=== PATIENT | female | born 1955 | race Caucasian/White ===

== ENCOUNTER 2019-01-20 10:39 | Emergency (ER) | payer BC, SELFPAY ==
[2019-01-20 10:42] VITALS: BP 146/90; PULSE 65; RESP 20; TEMP 36.8; O2SAT 100
--- NOTE | 2019-01-20 11:10 | W.ED.GENAD ---
Discharge Plan Disposition Patient Disposition: HOME Condition: Improving Discharge Details Chief Complaint: Orthopedic Clinical Impression: Finger sprain Primary Care Provider: Jean Rogers ED Provider: Davey Sanchez Home Meds and New Rx's Prescriptions: Continued levothyroxine [Synthroid] 25 mcg Tablet PO DAILY RF: 0 Discharge Instructions Additional Instructions: Elevate and ice to reduce pain and swelling today. You likely have spreading of the bruising. A jeweler will be able to reshape and repair your ring. Return for any acute concerns Discharge Data Discharge Date/Time-TO BE ENTERED AT DEPARTURE: 01/20/19 11:23 Medical Decision Making 63-year-old female sprained her left finger when falling downstairs yesterday. It is her wedding ring finger, which was left in place overnight. Significant distal swelling and pain this morning. She arrives, the ring requires and is removed with a ring cutter. She has intact full range of motion, with normal sensation. She declines x-ray. She is stable for discharge to home HPI General Mode of arrival: ambulatory. Date/Time Provider Initiated Documentation: 01/20/19 10:40. Limitations to Documentation: no limitations. Information obtained by: patient. History of Present Illness 63 year old F presents to the emergency department with the chief complaint of Left ring finger swelling and pain, ring in place, described as mild, Quality is described as dull and constant, and is localized to the left and upper extremity. Patient reports no radiation. Patient started experiencing this hour(s) and it has been constant. No relieving factors improve symptom(s), No exacerbating factors reported . Patient notes no other symptoms.. Related Data Home Medications Medication Instructions Recorded Confirmed levothyroxine [Synthroid] mcg PO DAILY 01/20/19 Allergies Allergy/AdvReac Type Severity Reaction Status Date / Time No Known Allergies Allergy Unverified 01/20/19 10:46 General Stated Complaint: Orthopedic SAKSHI: 3 Review of Systems Review of Systems No numbness or tingling. Denies significant pain at rest. 6 systems reviewed and otherwise negative [facility] Medical History History of cold urticaria (Acute) Hypothyroid (Chronic) Social History Smoking/Tobacco Use Status: Never Alcohol Intake: never Substance use type: does not use Do you feel safe at home: Yes Do you feel safe in your relationship?: Yes Exam Narrative Exam Narrative: GEN: awake, alert, oriented 3. Pleasant, well groomed, interactive. HEAD: Normocephalic, atraumatic EXT: Full ROM, the left ring finger is swollen distally with ring present proximally. Full range of motion intact. No bony tenderness. Capillary refill is approximately 2 set Neuro: Grossly normal neurologic exam, conversant, interactive. Psych: Speech fluent, thoughts congruent, affect normal Course Vital Signs Temperature 36.8 C 01/20/19 10:42 Pulse 65 01/20/19 10:42 Respiratory Rate 20 01/20/19 10:42 Blood Pressure 146/90 H 01/20/19 10:42 Pulse Oximetry 100 01/20/19 10:42 Temperature 36.8 C 01/20/19 10:42 Temperature Source Temporal Artery Scan 01/20/19 10:42 Pulse 65 01/20/19 10:42 Respiratory Rate 20 01/20/19 10:42 Respiratory Effort Non-Labored 01/20/19 10:42 Blood Pressure 146/90 H 01/20/19 10:42 Pulse Oximetry 100 01/20/19 10:42 Oxygen Delivery Method Room Air 01/20/19 10:42 Oxygen Flow Rate 0 01/20/19 10:42 Pain Level 1 01/20/19 10:42 Comment 01/20/19 10:42
--- NOTE | 2019-01-20 11:14 | ED.GENADUL_ITS ---
Discharge Plan Disposition Patient Disposition: HOME Condition: Improving Discharge Details Chief Complaint: Orthopedic Clinical Impression: Finger sprain Primary Care Provider: Jean Rogers ED Provider: Davey Sanchez Home Meds and New Rx's Prescriptions: Continued levothyroxine [Synthroid] 25 mcg Tablet PO DAILY RF: 0 Discharge Instructions Additional Instructions: Elevate and ice to reduce pain and swelling today. You likely have spreading of the bruising. A jeweler will be able to reshape and repair your ring. Return for any acute concerns Discharge Data Discharge Date/Time-TO BE ENTERED AT DEPARTURE: 01/20/19 11:23 Medical Decision Making 63-year-old female sprained her left finger when falling downstairs yesterday. It is her wedding ring finger, which was left in place overnight. Significant distal swelling and pain this morning. She arrives, the ring requires and is removed with a ring cutter. She has intact full range of motion, with normal sensation. She declines x-ray. She is stable for discharge to home HPI General Mode of arrival: ambulatory . Date/Time Provider Initiated Documentation: 01/20/19 10:40 . Limitations to Documentation: no limitations . Information obtained by: patient . History of Present Illness 63 year old F presents to the emergency department with the chief complaint of Left ring finger swelling and pain, ring in place, described as mild, Quality is described as dull and constant, and is localized to the left and upper ex tremity. Patient reports no radiation. Patient started experiencing this hour(s) and it has been constant. No relieving factors improve symptom(s), No exacerbating factors reported . Patient notes no other symptoms.. Related Data Home Medications Medication Instructions Recorded Confirmed levothyroxine [Synthroid] mcg PO DAILY 01/20/19 Allergies Allergy/AdvReac Type Severity Reaction Status Date / Time No Known Allergies Allergy Unverified 01/20/19 10:46 General Stated Complaint: Orthopedic SAKSHI: 3 Review of Systems Review of Systems No numbness or tingling. Denies significant pain at rest. 6 systems reviewed and otherwise negative [facility] Medical History History of cold urticaria (Acute) Hypothyroid (Chronic) Social History Smoking/Tobacco Use Status: Never Alcohol Intake: never Substance use type: does not use Do you feel safe at home: Yes Do you feel safe in your relationship?: Yes Exam Narrative Exam Narrative: GEN: awake, alert, oriented 3. Pleasant, well groomed, interactive. HEAD: Normocephalic, atraumatic EXT: Full ROM, the left ring finger is swollen distally with ring present proximally. Full range of motion intact. No bony tenderness. Capillary refill is approximately 2 set Neuro: Grossly normal neurologic exam, conversant, interactive. Psych: Speech fluent, thoughts congruent, affect normal Course Vital Signs Temperature 36.8 C 01/20/19 10:42 Pulse 65 01/20/19 10:42 Respiratory Rate 20 01/20/19 10:42 Blood Pressure 146/90 H 01/20/19 10:42 Pulse Oximetry 100 01/20/19 10:42 Temperature 36.8 C 01/20/19 10:42 Temperature Source Temporal Artery Scan 01/20/19 10:42 Pulse 65 01/20/19 10:42 Respiratory Rate 20 01/20/19 10:42 Respiratory Effort Non-Labored 01/20/19 10:42 Blood Pressure 146/90 H 01/20/19 10:42 Pulse Oximetry 100 01/20/19 10:42 Oxygen Delivery Method Room Air 01/20/19 10:42 Oxygen Flow Rate 0 01/20/19 10:42 Pain Level 1 01/20/19 10:42 Comment 01/20/19 10:42
[2019-01-20 11:50] VITALS: BP 146/90; PULSE 65; RESP 20; TEMP 36.8; O2SAT 100
== END 2019-01-20 11:23 | disposition home or self-care (01) ==
PROVIDERS: Emergency Provider Emergency Medicine; PCP Internal Medicine
DX: S63.615A Unspecified sprain of left ring finger, initial encounter (principal); W49.04XA Ring or other jewelry causing external constriction, initial encounter; W10.8XXA Fall (on) (from) other stairs and steps, initial encounter
CPT/HCPCS: 99282

== ENCOUNTER 2019-03-03 13:55 | Outpatient (REF) | payer BC, SELFPAY | END 2019-03-03 14:15 | LOC: NCHCN 13:55 | PROVIDERS: PCP Internal Medicine; Visit Provider Internal Medicine | DX: Z00.00 Encounter for general adult medical examination without abnormal findings (principal); E03.9 Hypothyroidism, unspecified | CPT/HCPCS: 84443 ==

== ENCOUNTER 2019-10-26 12:10 | Outpatient (REF) | payer BC, SELFPAY ==
[2019-10-26 21:17] LABS: Abs Immature Grans 0.01 k/cumm (0.0-0.09); Absolute Basophil Count 0.03 k/cumm (0.0-0.2); Absolute Eosinophil Count 0.13 k/cumm (0.0-0.7); Absolute Lymphocyte Count 2.13 k/cumm (1.2-3.4); Absolute Monocyte Count 0.38 k/cumm (0.11-0.7); Absolute Neutrophil Count 2.67 k/cumm (1.2-6.7); Basophils % 0.6; Eosinophils % 2.4; HCT 40.5 % (36.0-46.0); HGB 13.5 g/dL (12.0-15.5); Immature Grans % 0.2 %; Lymphocytes % 39.8; Mean Corp. HGB Concentration 33.3 g/dL (32.0-36.0); Mean Corpuscular Hemoglobin 28.5 pg (27.0-33.0); Mean Corpuscular Volume 85.6 fL (80-95); Mean Platelet Volume 10.6 fL (8.0-11.0); Monocytes % 7.1; Neutrophils % 49.9; Platelet Count 267 x1000/uL (130-400); RBC 4.73 m/cumm (4.00-5.20); RBC Distribution Width 13.4 % (11.7-14.6); White Blood Cell Count 5.35 k/cumm (4.4-10.8)
[2019-10-26 21:38] LABS: ALT 29 U/L (14-59); AST 22 U/L (15-37); Albumin 4.1 g/dL (3.4-5.0); Alkaline Phosphatase 100 U/L (46-116); Anion Gap 11.7 mmol/L (3-11); BUN 16 mg/dL (7-18); Bilirubin, Total 0.5 mg/dL (0.2-1.0); CO2 25.3 mmol/L (21.0-32.0); CREATININE 0.86 mg/dL (0.55-1.02); Calcium 9.3 mg/dL (8.5-10.1); Chloride 104 mmol/L (98-107); Glucose 86 mg/dL (74-106); Potassium 4.2 mmol/L (3.5-5.1); Sodium 141 mmol/L (136-145); Total Protein 7.5 g/dL (6.4-8.2)
[2019-10-26 22:12] LABS: FREE T4 1.38 ng/dL (0.76-1.46); TSH 1.37 uIU/mL (0.36-3.74)
[2019-10-27 16:06] LABS: Rheumatoid Factor 9.5 IU/mL (<12.0)
[2019-10-30 12:06] LABS: Lyme Ab w Rflx to Lyme Confirm Negative (Negative)
[2019-10-30 15:53] LABS: c-ANCA Negative (Negative); p-ANCA Negative (Negative)
[2019-10-30 22:05] LABS: Anaplasma phagocytophilum Negative (Negative); B. miyamotoi PCR Negative (Negative); Babesia divergens/MO-1 Negative (Negative); Babesia duncani Negative (Negative); Babesia microti Negative (Negative); Ehrlichia chaffeensis Negative (Negative); Ehrlichia ewingii/canis Negative (Negative); Ehrlichia muris eauclairensis Negative (Negative)
[2019-10-31 14:25] LABS: ANA Interpretation Positive (Negative)
== END 2019-10-26 12:30 ==
LOC: NCHCN 12:10
PROVIDERS: PCP Internal Medicine; Visit Provider Internal Medicine
DX: M25.559 Pain in unspecified hip (principal); M25.569 Pain in unspecified knee; M19.049 Primary osteoarthritis, unspecified hand; L50.2 Urticaria due to cold and heat; E03.9 Hypothyroidism, unspecified
CPT/HCPCS: 80053; 87798; 84439; 84443; 85025; 86038; 86255; 86431; 86618

== ENCOUNTER 2020-01-29 09:43 | Outpatient (REF) | payer BC, SELFPAY ==
[2020-02-01 12:16] LABS: dsDNA Ab, IgG <12.3 IU/mL (<30.0)
== END 2020-01-29 10:03 ==
LOC: NCHCN 09:43
PROVIDERS: PCP Internal Medicine; Visit Provider Internal Medicine
DX: R79.89 Other specified abnormal findings of blood chemistry (principal)
CPT/HCPCS: 86225

== ENCOUNTER 2020-02-20 15:22 | Outpatient (REF) | payer BC, SELFPAY ==
[2020-02-21 02:32] LABS: COVID-19 RT-PCR UVMMC Result Negative (Negative)
== END 2020-02-20 15:42 ==
LOC: NCHCN 15:22
PROVIDERS: PCP Internal Medicine; Visit Provider Nurse Practitioner Family
DX: R50.9 Fever, unspecified (principal)
CPT/HCPCS: U0003

== ENCOUNTER 2020-03-13 13:14 | Outpatient (REF) | payer BC, SELFPAY ==
[2020-03-15 10:36] LABS: Lyme Ab w Rflx to Lyme Confirm Positive (Negative)
[2020-03-18 15:50] LABS: IgG Band(s) p41; IgG Immunoblot Negative (Negative); IgM Band(s) p23; IgM Immunoblot Positive (Negative)
[2020-03-18 23:14] LABS: Anaplasma phagocytophilum Negative (Negative); B. miyamotoi PCR Negative (Negative); Babesia divergens/MO-1 Negative (Negative); Babesia duncani Negative (Negative); Babesia microti Negative (Negative); Ehrlichia chaffeensis Negative (Negative); Ehrlichia ewingii/canis Negative (Negative); Ehrlichia muris eauclairensis Negative (Negative)
[2020-03-29 11:17] LABS: Misc Referral (MAYO) See Comments
== END 2020-03-13 13:34 ==
LOC: NCHCN 13:14
PROVIDERS: PCP Internal Medicine; Visit Provider Internal Medicine
DX: R50.9 Fever, unspecified (principal); R79.89 Other specified abnormal findings of blood chemistry
CPT/HCPCS: 86617; 87798; 86618

== ENCOUNTER 2020-04-16 21:51 | Outpatient (REF) | payer BC, SELFPAY ==
[2020-04-18 10:17] LABS: Lyme Ab w Rflx to Lyme Confirm Positive (Negative)
[2020-04-19 15:30] LABS: IgG Band(s) p41; IgG Immunoblot Negative (Negative); IgM Band(s) p41; IgM Immunoblot Positive (Negative)
== END 2020-04-16 22:11 ==
LOC: NCHCN 21:51
PROVIDERS: PCP Internal Medicine; Visit Provider Internal Medicine
DX: R79.89 Other specified abnormal findings of blood chemistry (principal); M25.559 Pain in unspecified hip; M25.569 Pain in unspecified knee
CPT/HCPCS: 86617; 86618

== ENCOUNTER 2020-06-26 14:39 | Outpatient (REF) | payer BC, SELFPAY ==
[2020-07-01 23:42] LABS: SARS-CoV-2 RNA Undetected (Undetected); SARS-CoV-2 Specimen Source Nasal
== END 2020-06-26 14:59 ==
LOC: NCHCN 14:39
PROVIDERS: PCP Internal Medicine; Visit Provider Internal Medicine
DX: Z20.828 Contact with and (suspected) exposure to other viral communicable diseases (principal)
CPT/HCPCS: U0003

== ENCOUNTER 2020-09-19 20:54 | Outpatient (REF) | payer BC, SELFPAY ==
[2020-09-19 21:37] LABS: FREE T4 1.38 ng/dL (0.76-1.46); TSH 1.21 uIU/mL (0.36-3.74)
== END 2020-09-19 21:14 ==
LOC: NCHCN 20:54
PROVIDERS: PCP Internal Medicine; Visit Provider Internal Medicine
DX: E03.9 Hypothyroidism, unspecified (principal)
CPT/HCPCS: 84439; 84443

== ENCOUNTER 2021-02-12 11:42 | Outpatient (REF) | payer MEDICARE, SELFPAY ==
[2021-02-12 16:20] LABS: Absolute Basophil Count 0.01 10^3/uL (0.0-0.2); Absolute Lymphocyte Count 0.72 10^3/uL (1.2-3.4); Absolute Monocyte Count 0.17 10^3/uL (0.1-0.8); Absolute Neutrophil Count 1.51 10^3/uL (1.2-6.7); Basophils % 0.4; HGB 13.8 g/dL (11.2-15.7); Lymphocytes % 29.9; MCH 28.2 pg (27.0-33.0); MCHC 33.7 % (32.0-36.0); MCV 83.8 fL (80-95); MPV 10.7 fL (8.0-11.0); Monocytes % 7.1; Neutrophils % 62.6; Nucleated RBC 0 %; RBC 4.89 10^6/uL (3.93-5.22); RDW 13.1 % (11.7-14.6); WBC 2.41 10^3/uL (4.4-10.8)
[2021-02-12 16:28] LABS: ALT 179 U/L (14-59); AST 192 U/L (15-37); Albumin 3.3 g/dL (3.4-5.0); Alkaline Phosphatase 184 U/L (46-116); Anion Gap 11.6 mmol/L (3-11); BUN 11 mg/dL (7-18); Bilirubin, Total 0.6 mg/dL (0.2-1.0); CO2 21.4 mmol/L (21.0-32.0); CREATININE 0.9 mg/dL (0.55-1.02); Calcium 8.4 mg/dL (8.5-10.1); Chloride 106 mmol/L (98-107); Glucose 95 mg/dL (74-106); Potassium 3.9 mmol/L (3.5-5.1); Sodium 139 mmol/L (136-145); Total Protein 6.7 g/dL (6.4-8.2)
[2021-02-12 17:04] LABS: Diff Comment PLT Morph Reviewed; Platelet Count 99 10^3/uL (130-400); RBC Morphology Normal
[2021-02-13 10:59] LABS: Lyme Ab w Rflx to Lyme Confirm Negative (Negative)
[2021-02-13 13:05] LABS: dsDNA Ab, IgG <12.3 IU/mL (<30.0)
[2021-02-14 16:29] LABS: COVID-19 RT-PCR UVMMC Result Negative (Negative)
== END 2021-02-12 11:43 | disposition home or self-care (01) ==
LOC: NCHCN 11:42
PROVIDERS: PCP Internal Medicine; Visit Provider Internal Medicine
DX: M25.551 Pain in right hip (principal); M25.552 Pain in left hip; M25.561 Pain in right knee; M25.562 Pain in left knee; R79.89 Other specified abnormal findings of blood chemistry; Z20.822 Contact with and (suspected) exposure to COVID-19
CPT/HCPCS: 80053; U0003; 85025; 86225; 86618

== ENCOUNTER 2021-02-27 14:42 | Outpatient (REF) | payer MEDICARE, OTHER, SELFPAY ==
[2021-02-28 09:59] LABS: HGB 13.1 g/dL (11.2-15.7); MCH 28.2 pg (27.0-33.0); MCHC 32.8 % (32.0-36.0); MCV 86.2 fL (80-95); MPV 10.7 fL (8.0-11.0); Nucleated RBC 0 %; Platelet Count 245 10^3/uL (130-400); RBC 4.64 10^6/uL (3.93-5.22); RDW 13.4 % (11.7-14.6); RDW-SD 41.9 fL; WBC 4.75 10^3/uL (4.4-10.8)
[2021-02-28 10:18] LABS: Absolute Basophil Count 0.05 10^3/uL (0.0-0.2); Absolute Eosinophil Count 0.19 10^3/uL (0.0-0.7); Absolute Lymphocyte Count 2.14 10^3/uL (1.2-3.4); Absolute Monocyte Count 0.57 10^3/uL (0.1-0.8); Absolute Neutrophil Count 1.81 10^3/uL (1.2-6.7); Atypical Lymphocytes % 5; Bands % 3; Diff Comment Manual Differential; RBC Morphology Normal
[2021-02-28 10:22] LABS: ALT 38 U/L (14-59); AST 30 U/L (15-37); Albumin 3.8 g/dL (3.4-5.0); Alkaline Phosphatase 122 U/L (46-116); Bilirubin, Direct 0.1 mg/dL (0.0-0.2); Bilirubin, Total 0.4 mg/dL (0.2-1.0); Total Protein 7.4 g/dL (6.4-8.2)
[2021-02-28 11:00] LABS: Vitamin B12 392 pg/mL (193-986)
[2021-03-04 08:55] LABS: Hepatitis C Ab w Rflx HCV PCR Negative (Negative)
[2021-03-04 08:56] LABS: Hep A Total Ab w Rflx IgM Negative (Negative)
== END 2021-02-27 14:43 | disposition home or self-care (01) ==
LOC: NCHCN 14:42
PROVIDERS: PCP Internal Medicine; Visit Provider Internal Medicine
DX: R94.5 Abnormal results of liver function studies (principal); D69.6 Thrombocytopenia, unspecified; D72.819 Decreased white blood cell count, unspecified; F43.10 Post-traumatic stress disorder, unspecified; F51.05 Insomnia due to other mental disorder; F43.21 Adjustment disorder with depressed mood
CPT/HCPCS: 80076; 86709; 86803; 82607; 85025

== ENCOUNTER 2021-09-02 19:02 | Outpatient (REF) | payer MEDICARE, OTHER, SELFPAY ==
[2021-09-02 15:38] LABS: TSH 0.54 uIU/mL (0.36-3.74)
== END 2021-09-02 19:03 | disposition home or self-care (01) ==
LOC: NCHCN 19:02
PROVIDERS: PCP Internal Medicine; Visit Provider Internal Medicine
DX: E03.9 Hypothyroidism, unspecified (principal)
CPT/HCPCS: 84439; 84443

== ENCOUNTER 2023-11-05 20:25 | Outpatient (REF) | payer MEDICARE, SELFPAY ==
[2023-11-05 21:20] LABS: Abs Immature Grans 0.01 10^3/uL (0.0-0.06); Absolute Basophil Count 0.05 10^3/uL (0.0-0.2); Absolute Eosinophil Count 0.13 10^3/uL (0.0-0.7); Absolute Lymphocyte Count 2.53 10^3/uL (1.2-3.4); Absolute Monocyte Count 0.37 10^3/uL (0.1-0.8); Absolute Neutrophil Count 2.84 10^3/uL (1.2-6.7); Basophils % 0.8; Eosinophils % 2.2; HCT 38.2 % (36.0-46.0); HGB 12.6 g/dL (11.2-15.7); Immature Grans % 0.2; Lymphocytes % 42.7; MCH 28.9 pg (27.0-33.0); MCV 88 fL (80-95); MPV 10.5 fL (8.0-11.0); Monocytes % 6.2; Neutrophils % 47.9; Platelet Count 284 10^3/uL (130-400); RBC 4.36 10^6/uL (3.93-5.22); WBC 5.93 10^3/uL (4.4-10.8)
[2023-11-05 21:50] LABS: C-Reactive Protein < 0.50 mg/dL (<or=0.5); TSH (W/Ref FT4) 0.08 uIU/mL (0.36-3.74)
[2023-11-05 22:07] LABS: FREE T4 1.44 ng/dL (0.76-1.46)
[2023-11-09 15:41] LABS: ANA Interpretation Positive (Negative); ANA Titer Pattern 1:320 Homogeneous
== END 2023-11-05 20:26 | disposition home or self-care (01) ==
LOC: NCHCN 20:25
PROVIDERS: PCP Internal Medicine; Visit Provider Family Medicine
DX: E03.9 Hypothyroidism, unspecified (principal); R76.8 Other specified abnormal immunological findings in serum
CPT/HCPCS: 84439; 84443; 85025; 86038; 86140